=== PATIENT | female | born 2000 | race African-American/Black ===

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

== ENCOUNTER 2021-02-16 10:22 | Emergency (ER) | payer OTHER ==
[~2021-02-16] VITALS: Ht 165.1 cm; Wt 117.9 kg
[~2021-02-16 10:22] MED LIST changes: +BACTROBAN15 GM TOP; +KEFLEX500 M1 PO
[2021-02-16 10:49] LABS: ABSOLUTE NEUTROPHILS 1.8 thou/uL (1.4-8.2); BASOPHILS 1.8 % (0.0-2.0); EOSINOPHILS 4.5 % (0.0-3.0); HEMATOCRIT 35.5 % (37.0-47.0); HEMOGLOBIN 11.6 gm/dL (12.0-15.0); LYMPHOCYTES 40.3 % (24.0-44.0); MCHC 32.6 g/dL (28.0-37.0); MCV 76.6 fL (80.0-100.0); MONOCYTES 10.8 % (1.0-8.0); PLATELET COUNT 295 thou/uL (150-400); POLYS 42.6 % (36.0-66.0); RBC 4.64 mil/uL (4.20-5.00); RDW 15.3 % (10.5-14.5); WBC 4.3 thou/uL (4.0-11.0)
[2021-02-16 10:50] LABS: URINE BILIRUBIN NEGATIVE (Negative); URINE BLOOD 1+ (Negative); URINE CLARITY CLEAR; URINE COLOR YELLOW; URINE GLUCOSE-RANDOM* NEGATIVE (Negative); URINE KETONES NEGATIVE (Negative); URINE LEUKOCYTES-REFLEX 3+ (Negative); URINE NITRITE-REFLEX NEGATIVE (Negative); URINE PROTEIN (DIPSTICK) NEGATIVE (Negative); URINE SPECIFIC GRAVITY <= 1.005 (1.005-1.035); URINE UROBILINOGEN 0.2 E.U./dl (0.2-1.0)
[2021-02-16 10:55] LABS: CALCIUM 9.1 mg/dL (8.5-10.1); CREATININE 0.8 mg/dL (0.6-1.0); POTASSIUM 3.9 mmol/L (3.5-5.1)
[2021-02-16 11:01] LABS: ALBUMIN 3.8 g/dL (3.4-5.0); TOTAL BILIRUBIN 0.4 mg/dL (0.2-1.0); TOTAL PROTEIN 8.2 g/dL (6.4-8.2)
[2021-02-16 11:19] LABS: CASTS None Seen /LPF (None Seen); SQUAMOUS >10 Many /LPF (0-3); URINE WBC-REFLEX 6-15 Few /HPF (0-5)
[2021-02-16 11:20] LABS: BACTERIA-REFLEX 1-9 Few /HPF (None Seen); CRYSTALS None Seen /LPF (None Seen); URINE RBC 1-2 Rare /HPF (NONE SEEN)
[2021-02-16] MEDS ORDERED: DOXYCYCLINE 10100 MG PO (12:14)
[2021-02-16 12:23] VITALS: BP 135/79
== END 2021-02-16 12:46 | disposition home or self-care (01) ==
LOC: ER 10:22
PROVIDERS: Student in an Organized Health Care Education/Training Program
DX: A59.9 Trichomoniasis, unspecified (principal); Z79.899 Other long term (current) drug therapy